=== PATIENT | male | born 1930 | race African-American/Black ===

== ENCOUNTER 2018-11-21 13:44 | Inpatient (IN) ==
[2018-11-21 14:53] LABS: BASO# 0.01 X1000 (0.0-0.2); BASO% 0.1 % (0.0-0.8); EOS# 0.05 X1000 (0.0-0.7); EOS% 0.6 % (0.0-10.0); HEMATOCRIT 31.4 % (42.0-52.0); HEMOGLOBIN 10.3 g/dL (14.0-18.0); IMM GRAN# 0.02 X1000 (0.0-0.04); IMM GRAN% 0.2 % (0.0-0.5); LYMPH% 18.1 % (20.5-51.1); MCH 28.8 PG (27-31); MCHC 32.8 g/dL (33-37); MCV 87.7 FL (81-99); MONO# 0.75 X1000 (0.11-0.59); MPV 9.6 FL (7.4-10.4); NEUT# 5.98 X1000 (1.4-6.5); PLT 238 X1000 (130-400); RBC 3.58 XMIL (4.7-6.1); WBC 8.31 X1000 (4.8-10.8)
[2018-11-21 15:19] LABS: AGAP 14; ALBUMIN 3.5 g/dL (3.5-5.0); ALKALINE PHOSPHATASE 64 U/L (32-122); AMYLASE 53 U/L (20-200); BUN 12 mg/dL (8-22); CALCIUM 8.7 mg/dL (8.8-10.2); CHLORIDE 91 mmol/L (98-107); COSMO 259; CREATININE 1.1 mg/dL (0.7-1.2); ESTIMATED GFR > 60; GLUCOSE 106 mg/dL (70-104); GOT 16 U/L (10-34); GPT 7 U/L (10-44); LIPASE 22 U/L (13-60); POTASSIUM 3.6 mmol/L (3.5-5.1); SODIUM 129 mmol/L (136-145); TCO2 24 mmol/L (25-35); TOTAL PROTEIN 6.7 g/dL (6.3-8.3)
--- NOTE | 2018-11-21 18:11 | Diag Imaging Result Doc PS360 ---
EXAM: CT ABD/PELVIS W/IV CONT ONLY 11/21/2018 HISTORY: abdominal pain TECHNIQUE: This exam was performed using automated exposure control, adjustment of mA or kV according to patient size, and/or use of iterative reconstruction technique. COMMENT: There are interstitial opacities in both lung bases which were also present at the time the previous study and may be related to fibrotic lung disease. There is a lobulated mass over the left hemidiaphragm which was not present at the time the previous examination of 08/08/2011. There is irregular enhancement of the mass which appears to pass through the hemidiaphragm. This measures 5.3 cm in greatest dimension. The spleen is not enlarged. The adrenal glands are within normal limits. There are numerous subcentimeter calcified gallstones. There is no evidence of cholecystitis. The liver is unremarkable. The kidneys are without evidence of hydronephrosis or mass. There is a small cortical cyst in the lower pole of the left kidney. There is no evidence of bowel obstruction or appendicitis. There is diverticulosis particularly in the distal descending and sigmoid colon. There is no evidence of abdominal aortic aneurysm. The pancreas is unremarkable. Pelvis: There is a diverticulum on the left side of the urinary bladder. The appendix is normal in appearance. There is no evidence of free fluid or mass. There is osteopenia throughout most of the regional skeleton. 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 There are punctate areas of sclerosis distributed throughout the pelvis including the sacrum. These findings were also present on the previous study. IMPRESSION: Left basilar/diaphragmatic mass. Otherwise stable since 08/08/2011. Cholelithiasis. Electronically signed by Jasmeet Phan 11/21/2018 6:08 PM
[2018-11-21] MEDS ORDERED: MORPHINE IV ONE (19:18)
[2018-11-21] MEDS ORDERED: ZOFRAN IV ONE (19:18)
[2018-11-21 20:36] LABS: BILIRUBIN URINE NEGATIVE (NEGATIVE); BLOOD URINE NEGATIVE (NEGATIVE); CLARITY CLEAR (CLEAR); COLOR YELLOW; GLUCOSE URINE NEGATIVE (NEGATIVE); KETONE URINE NEGATIVE (NEGATIVE); LEUKOCYTES URINE NEGATIVE (NEGATIVE); NITRITE URINE NEGATIVE (NEGATIVE); PH URINE 6.5; PROTEIN URINE 2+(100 mg/dL) mg/dL (NEGATIVE); UROBILINOGEN URINE 8 mg/dL
[2018-11-21 20:44] LABS: URINE BACTERIA 1+ /HFP; URINE CAST NONE SEEN /LPF; URINE CRYSTAL NONE SEEN /HPF; URINE EPITHELIAL CELLS <10 /HPF (<10); URINE SOURCE CATH; URINE YEAST NONE SEEN /HPF
[2018-11-21] MEDS ORDERED: TYLENOL PO PRN (21:19)
[2018-11-21] MEDS ORDERED: MORPHINE IV PRN ×2 (21:19→23:41)
--- NOTE | 2018-11-21 21:25 | PROVIDER DOCUMENTATION ---
This chart was entered by Suzan Sr Scribe, acting as scribe for Tony Tidwell MD. HPI-Abdominal Pain/GI Problem - General Chief Complaint: Abdominal Pain Stated Complaint: PAIN IN STOMACH / CAN'T EAT Time Seen by Provider: 11/21/18 16:53 Source: patient, family Allergies/Adverse Reactions: Patient Allergies Allergy/AdvReac Type Severity Reaction Status Date / Time No Known Allergies Allergy Verified 11/21/18 14:18 Home Medications: Home Medication List Medication Instructions Recorded Confirmed Last Taken Type Aspirin 81 mg PO DAILY 11/21/18 11/21/18 Unknown History Bicalutamide [Casodex] 50 mg PO DAILY 11/21/18 11/21/18 Unknown History Cholecalciferol (Vitamin D3) 1,000 unit PO DAILY 11/21/18 11/21/18 Unknown History [Vitamin D3] Dexamethasone 1.5 mg PO DIRECTED 11/21/18 11/21/18 Unknown History Furosemide [Lasix] 20 mg PO DAILY 11/21/18 11/21/18 Unknown History Iron Carbonyl/Vit C/Vit B12/FA 1 each PO DAILY 11/21/18 11/21/18 Unknown History [Icar-C Plus] Pantoprazole [Protonix] 40 mg PO DAILY@0700 11/21/18 11/21/18 Unknown History Potassium Chloride 10 meq PO DAILY 11/21/18 11/21/18 Unknown History SIMVAstatin [Zocor] 40 mg PO QHS 11/21/18 11/21/18 Unknown History Tamsulosin [Flomax] 0.4 mg PO DAILY 11/21/18 11/21/18 Unknown History Tramadol/APAP [Ultracet 1 each PO BID 11/21/18 11/21/18 Unknown History 37.5MG/325Mg] - History of Present Illness-ABD Nature of Presenting Problems: 88 yobm presents to the ed with family with c/o abdominal pain, decreased appetite for 1 week. Abdominal Pain Onset Location: reports: epigastric Pain Radiation: reports: no radiation Quality of Pain: reports: aching Severity in ED: reports: moderate Onset/Duration: reports: 1 week ago Timing: reports: still present, intermittent Activities at Onset: reports: light activity Modifying Factors: improves with: nothing. worse with: eating Associated Symptoms: reports: loss of appetite. 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 denies: diarrhea, nausea, vomiting Genitourinary: reports: no symptoms reported Musculoskeletal: reports: no symptoms reported Integumentary: reports: no symptoms reported Neurological: denies: dizziness/vertigo, headache/migraines Psychiatric: reports: no symptoms reported Endocrine: reports: no symptoms reported Hematologic/Lymphatic: reports: no symptoms reported Allergic/Immunologic: reports: no symptoms reported All Other Systems: Reviewed and Negative Past History - Adult - PAST MEDICAL HISTORY-ADULT Review of Records: reports: Old Records Reviewed, Nursing Assessment Review, Medications Reviewed, Social history reviewed & non-contributory. Major Childhood Illnesses: reports: denies history Cardiovascular: reports: HTN Respiratory: reports: denies history Gastrointestinal: reports: denies history Genitourinary: reports: prostate cancer Musculoskeletal: reports: chronic pain, neck/back injury Neurological: reports: CVA, stroke deficits, speech difficulty Psychiatric: reports: denies history Endocrine/Immune: reports: denies history Other Conditions: reports: denies history - PRIOR SURGERIES/PROCEDURES Surgical/Procedure History: reports: other (TURP) - IMMUNIZATION STATUS Childhood Immunizations: See Nurse Assessment Flu Vaccine: See Nurse Assessment - FAMILY HISTORY Family History: reviewed, not pertinent - SOCIAL HISTORY Smoking: quit greater than 1 year Substance Use: denies Alcohol Use Frequency: never Living Situation: alone Physical Exam-General - PHYSICAL EXAM-ADULT Initial Vital Signs Reviewed: Yes - CONSTITUTIONAL General Appearance: alert, no apparent distress - EYES Eyes: PERRL/EOMI, pink conjunctivae - HEAD, EARS, NOSE, MOUTH & THROAT HENMT: moist mucous membranes, other (no teeth) - NECK Neck: full range of motion, normal inspection - CARDIOVASCULAR Cardiovascular: normal peripheral pulses, regular rate, rhythm, systolic murmur - GASTROINTESTINAL (ABDOMEN) Abdominal Exam: normal bowel sounds, soft, tenderness (epigastric). negative: distended, guarding, rigid, rebound - LYMPHATIC Lymphatic: no adenopathy - MUSCULOSKELETAL Back Exam: normal inspection, no CVA tenderness, no vertebral tenderness Extremity: normal inspection, no calf tenderness, normal capillary refill. negative: normal gait (but is at baseline per family) - SKIN Integumentary: normal color, normal turgor, warm/dry - NEUROLOGIC Neurologic: grossly normal (at baseline but does have issues from past CVA), abnormal gait (but baseline), facial droop (rt side old from cva), motor weakness (baseline from old stroke right side) - PSYCHIATRIC Psych/Mental Status: normal mood/affect, normal thought content, normal thought process, oriented x 3 Progress - PLAN OF CARE/RESULTS Progress/Plan/Lab Results: Vital Signs - 8 hr 11/21/18 14:11 11/21/18 15:52 Temperature 98.2 F 98 F Pulse Rate 74 76 Respiratory Rate 16 20 Blood Pressure 155/83 136/71 O2 Sat by Pulse Oximetry 99 99 Laboratory Results - last 24 hr 11/21/18 11/21/18 14:08 14:36 WBC 8.31 RBC 3.58 L Hgb 10.3 L Hct 31.4 L MCV 87.7 MCH 28.8 MCHC 32.8 L RDW Std Deviation 15.0 H Plt Count 238 MPV 9.6 Immature Gran % (Auto) 0.2 Neut % (Auto) 72.0 Lymph % (Auto) 18.1 L Faulkner % (Auto) 9.0 Eos % (Auto) 0.6 Baso % (Auto) 0.1 Immature Gran # (Auto) 0.02 Neut # (Auto) 5.98 Lymph # (Auto) 1.50 Faulkner # (Auto) 0.75 H Eos # (Auto) 0.05 Baso # (Auto) 0.01 Sodium 129 L Potassium 3.6 Chloride 91 L Carbon Dioxide 24 L Anion Gap 14 BUN 12 Creatinine 1.1 Estimated GFR/1.73 m2 > 60 BUN/Creatinine Ratio 11 Glucose 106 H Calculated Osmolality 259 Calcium 8.7 L Total Bilirubin 0.90 AST 16 ALT 7 L Alkaline Phosphatase 64 Total Protein 6.7 Albumin 3.5 Globulin 3.0 Albumin/Globulin Ratio 1.0 Amylase 53 Lipase 22 Orders Category Date Time Status Saline Loc DIRECTED Care 11/21/18 14:19 Active NPO Diet 11/21/18 14:19 Active AMYLASE [CHEM] Stat Lab 11/21/18 14:08 Completed CBC WITH ELECTRONIC DIFF [HEME] Stat Lab 11/21/18 14:36 Completed COMPREHENSIVE METABOLIC PANEL [CHEM] Stat Lab 11/21/18 14:08 Completed LIPASE [CHEM] Stat Lab 11/21/18 14:[address] W/POSS RFLX CULT [URINALYSIS] Stat Lab 11/21/18 14:19 Uncollected Result Diagrams: 11/21/18 14:36 11/21/18 14:08 - REASSESSMENT Reassessment #1 Time Reassessed: 20:10 Status: other (patient will have to stay in the ED as per charge nurse for space to be available in [facility] to allow for transfer) - CT/MRI 1 CT Study: Abdomen Impression: Abnormal ( EXAM: CT ABD/PELVIS W/IV CONT ONLY 11/21/2018 HISTORY: abdominal pain TECHNIQUE: This exam was performed using automated exposure control, adjustment of mA or kV according to patient size, and/or use of iterative reconstruction technique. COMMENT: There are interstitial opacities in both lung bases which were also present at the time the previous study and may be related to fibrotic lung disease. There is a lobulated mass over the left hemidiaphragm which was not present at the time the previous examination of 08/08/2011. There is irregular enhancement of the mass which appears to pass through the hemidiaphragm. This measures 5.3 cm in greatest dimension. The spleen is not enlarged. The adrenal glands are within normal limits. There are numerous subcentimeter calcified gallstones. There is no evidence of cholecystitis. The liver is unremarkable. The kidneys are without evidence of hydronephrosis or mass. There is a small cortical cyst in the lower pole of the left kidney. There is no evidence of bowel obstruction or appendicitis. There is diverticulosis particularly in the distal descending and sigmoid colon. There is no evidence of abdominal aortic aneurysm. The pancreas is unremarkable. Pelvis: There is a diverticulum on the left side of the urinary bladder. The appendix is normal in appearance. There is no evidence of free fluid or mass. There is osteopenia throughout most of the regional skeleton. 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 There are punctate areas of sclerosis distributed throughout the pelvis including the sacrum. These findings were also present on the previous study. IMPRESSION: Left basilar/diaphragmatic mass. Otherwise stable since 08/08/2011. Cholelithiasis. Electronically signed by Jasmeet Phan 11/21/2018 6:08 PM 11/21/181807 Interpreting Physician: Jasmeet Phan MD Dictated Date/Time: 11/21/181800) - CONSULTS/PCP/HOSPITALIST Notification #1 *Consult/PCP/Hospitalist*: Dr. Mkceon Time Discussed: 19:55 Consult Disposition: other (consult surgeon) #2 Consult: Dr. Dubose Time Discussed: 20:00 Consult Disposition: Admit (admit to [facility]) #3 Consult: Dr. Velasquez Time Discussed: 20:05 Consult Disposition: Admit (Transfer patient for admission at [facility]) Departure - Departure Date of Disposition Decision: 11/21/18 Time of Disposition Decision: 21:25 DIAGNOSIS: Diaphragmatic disorder, Mass, Hyponatremia Disposition: ADMITTED INPATIENT 09 Certified Medical Emergency: Emergent Condition: Serious - Critical Care Note This patient required my direct & personal management of CC.: No Attestation - Physician/ NORMAN Attestation The physician spent face to face time with patient:: Yes Advanced Practice Provider documentation review:: Supervising physician onsite and consulted in the evaluation and care of this patient. The physician did have a face to face encounter with the patient. This chart was documented by the indicated scribe, (Suzan Sr Scribe) and accurately reflects the services I performed and decisions made by me, Tony Tidwell MD, as attested by the provider's signature.
[2018-11-21] MEDS ORDERED: ZOFRAN IV PRN (23:38)
--- NOTE | 2018-11-22 02:21 | HISTORY AND PHYSICAL ---
PRIMARY CARE PHYSICIAN: Unknown. CHIEF COMPLAINT: Abdominal pain. HISTORY OF PRESENTING ILLNESS: An 88-year-old elderly male with a history of hypertension, CVA, prostate cancer, who initially presented to [facility] complaining of abdominal pain. The patient was evaluated there. He had abdominal CT done which did show a left basilar/diaphragmatic mass. Case was discussed with General Surgery, who recommended the patient be transferred to [facility] for further evaluation and management. The patient is a poor historian. He somewhat has garbled speech secondary to a previous stroke and not much history could be obtained from him and most of the history is obtained from previous ER charting and other records. PAST MEDICAL HISTORY: Hypertension, prostate cancer, CVA. PAST SURGICAL HISTORY: TURP. ALLERGIES: No known drug allergies. CURRENT MEDICATIONS: Flomax 0.4 mg p.o. daily, simvastatin 40 mg p.o. at bedtime KCl 10 mg p.o. daily, pantoprazole 40 mg p.o. daily, Lasix 20 mg p.o. daily, Casodex 50 mg p.o. daily, aspirin 81 mg daily. SOCIAL HISTORY: He is a former smoker. No history of alcohol or illicit drug use. FAMILY HISTORY: No history of coronary artery disease. REVIEW OF SYSTEMS: Limited due to patient's speech being somewhat garbled. PHYSICAL EXAMINATION: GENERAL: The patient is resting comfortably. VITAL SIGNS: Temperature 97.4 degrees, pulse 92, respirations 24, blood pressure 153/68. HEENT: Atraumatic, normocephalic. NECK: No masses. CHEST: Clear to auscultation. CARDIOVASCULAR: Regular rate and rhythm. ABDOMEN: Soft. Some diffuse tenderness. EXTREMITIES: No edema. NEUROLOGIC: He is awake, alert, oriented x1. GENITOURINARY: No bladder distention. SKIN: Warm. LABORATORIES AND STUDIES: WBCs. 8.31, hemoglobin 10.3, hematocrit 31.4, platelets 238,000. Sodium 129, potassium 3.6, chloride 91, CO2 is 24, BUN is 12, creatinine is 1.1 , CT of the abdomen and pelvis shows left basilar/diaphragmatic mass. ASSESSMENT: This is an 88-year-old elderly male with a history of hypertension , prostate cancer, and cerebrovascular accident, who had initially presented to [facility] with complaint of abdominal pain. The patient apparently had a CT scan done which did show a diaphragmatic mass. Case was discussed with General Surgery, who recommended the patient be transferred to [facility] for further evaluation and management. 1. Abdominal pain. 2. Abnormal CT showing diaphragmatic mass. 3. Cerebrovascular accident 4. Hypertension. 5. Prostate cancer. PLAN: 1. We will admit patient to medical floor with telemetry. 2. Keep patient NPO. 3. Consult General Surgery. 4. We will give patient adequate pain control and antiemetics as needed. 5. We will hold home medicines for now. 6. We will put patient on DVT prophylaxis with SCDs. 7. We will continue to follow, and reassess and make further recommendation based on patient's clinical course. cc: Isai Velasquez MD MTDD
[2018-11-22 06:31] LABS: BASO# 0.01 X1000 (0.0-0.2); BASO% 0.1 % (0.0-0.8); EOS# 0.05 X1000 (0.0-0.7); EOS% 0.6 % (0.0-10.0); HEMATOCRIT 34.4 % (42.0-52.0); HEMOGLOBIN 11.1 g/dL (14.0-18.0); LYMPH# 1.01 X1000 (1.2-3.4); LYMPH% 11.9 % (20.5-51.1); MCH 28.8 PG (27-31); MCHC 32.3 g/dL (33-37); MCV 89.4 FL (81-99); MONO# 0.76 X1000 (0.11-0.59); MPV 9.9 FL (7.4-10.4); NEUT# 6.65 X1000 (1.4-6.5); NEUT% 78.4 % (42.2-75.2); PLT 240 X1000 (130-400); RBC 3.85 XMIL (4.7-6.1); RDW 15.2 % (11.5-14.5); WBC 8.48 X1000 (4.8-10.8)
[2018-11-22 06:50] LABS: AGAP 13; BUN 14 mg/dL (8-22); CALCIUM 8.9 mg/dL (8.8-10.2); CHLORIDE 93 mmol/L (98-107); COSMO 261; ESTIMATED GFR > 60; GLUCOSE 96 mg/dL (70-104); POTASSIUM 3.5 mmol/L (3.5-5.1); SODIUM 130 mmol/L (136-145); TCO2 24 mmol/L (25-35)
--- NOTE | 2018-11-22 07:30 | GENERAL SURGERY CONSULTATION ---
DATE: 11/21/2018 HISTORY OF PRESENT ILLNESS: This is an 88-year-old gentleman who presented at the urgency of his family to the [place] ER with apparent upper abdominal discomfort. He has had no vomiting per the history that I have been able to obtain, although it is limited, as he does not seem completely oriented to his situation. A CT scan was obtained that showed numerous gallstones within the gallbladder, but it also showed a large left hilar mass extending to the diaphragm. His labs are overall unremarkable, but he does have some hyponatremia. He is hemodynamically stable, in no respiratory or acute distress. Medical history and surgical history is otherwise unobtainable, as well social history, given his current mental status. PHYSICAL EXAMINATION: General: He is alert. He does not appear to be in any acute distress. He is not really oriented. Cardiovascular: Normal rate. Pulmonary: No increased work of breathing. I see no thoracic scars. Abdomen: Soft. Integument: Warm. I do not palpate any crepitance to his chest. Otherwise warm, dry, without jaundice. Lymphatic: I do not feel any cervical, axillary, or inguinal adenopathy. Neurologic: He seems to be moving all extremities, but he is not oriented, but he is somewhat conversant. Musculoskeletal: He does have muscle atrophy throughout. ASSESSMENT AND PLAN: This is an elderly gentleman with a left, most likely pleural-based mass, multiple potential etiologies. He also has gallstones. His exam is benign. He does appear somewhat dehydrated, and possibly even malnourished. I have recommended admission for further workup to the hospitalist service. We will follow along surgically, but I do not see any acute surgical intervention, and overall in this elderly debilitated gentleman, I doubt aggressive measures will be indicated. cc: Kenrick Dubose MD
--- NOTE | 2018-11-22 11:12 | PROGRESS NOTE ---
DATE: 11/22/2018 SUBJECTIVE: He was admitted yesterday with abdominal pain, followed by Dr. Zaire Gallo. This is an 88-year-old with history of hypertension, CVA and prostate cancer. Presented to [facility] complaining of abdominal pain. Patient was evaluated there. CT of the abdomen showed left basilar diaphragmatic mass and was discussed with General surgery, who recommended the patient be transferred to [facility] [place]. I think they are trying to think about doing a biopsy. Patient is a poor historian. His niece is there and she helps. He has garbled speech and has had a previous stroke. Apparently he has been eating okay. PAST MEDICAL HISTORY: Hypertension, prostate cancer, CVA. CURRENT MEDICATIONS: Flomax 0.4 mg a day. Simvastatin 40 mg a day. Protonix 40 mg a day. Lasix 20 mg a day, Casodex 50 mg daily and aspirin 81 mg a day. EXAM: General: He is awake, alert, pleasant. Vital Signs: Temperature 98.8, pulse 73, respirations 20, blood pressure 145/71. Eyes: Pupils are equal and round. Lungs: Clear in all lung weiner. Cardiovascular: Regular rhythm and rate without murmur or S3. Abdomen: Soft. Skin: Warm and dry. DIAGNOSTICS: White count from yesterday 8480, hematocrit 34, platelet count 240,000. Sodium 130, potassium 3.5, chloride 93, BUN 14, creatinine 1.0. Urinalysis unremarkable. CT of the abdomen and pelvis, left basilar diaphragmatic mass. Otherwise stable from 08/08/2011. Cholelithiasis appreciated. ASSESSMENT AND PLAN: 1. Abdominal pain, left diaphragmatic mass basilar. I think the plan is to pursue a needle biopsy per General surgery. We will let him have liquids today and Dr. Dubose wants him to have soft diet tomorrow. 2. Status post cerebrovascular accident. He has some expressive aphasia. 3. Hypertension. 4. History of prostate cancer. Looking at his orders, I do not see any change. 5. Looking at his home medications, we will hold his aspirin, actually holding everything, Protonix and the iron, simvastatin. I think he can have his tamsulosin and Flomax. cc: Bimal Lo MD
[2018-11-22] MEDS: ULTRACET 37.5MG/325MG PO SCH ×2 (15:15→20:49)
[2018-11-22] MEDS: ZOCOR PO SCH (20:49)
--- NOTE | 2018-11-23 01:58 | GENERAL SURGERY PROGRESS NOTE ---
DATE: 11/22/2018 SUBJECTIVE: He feels much better. No further pain or nausea overnight. He is much more alert with his hydration. No fevers. No tachycardia. PHYSICAL EXAMINATION: General: He is alert and more conversant. Cardiovascular: Normal rate. Pulmonary: No increased work of breathing and with equal chest rise. Abdomen: Soft. Integument: Warm, dry. LABORATORY DATA: I reviewed his labs. White count is 8 hematocrit is 34. Sodium is up to 130, creatinine is 1.0. ASSESSMENT AND PLAN: An 88-year-old gentleman. On further questioning with his who is here with him, he does have a history of prostate cancer and he had a prostatectomy for this 10 years ago. His main issue was upper abdominal discomfort apparently. His CT scan showed an incidental left hemithorax mass of unclear etiology. I would recommend continued hydration. I think he is going to warrant a percutaneous biopsy of this or possibly a transbronchial biopsy. We will discuss with the radiologist after the weekend. Otherwise, we will continue hydration, nutritional supplementation. He is a very frail, elderly gentleman. I doubt he will be a candidate for any further aggressive measures, but we will monitor. He may benefit from systemic therapy. cc: Kenrick Dubose MD
[2018-11-23] MEDS: PROTONIX PO SCH ×2 (05:57→07:44)
--- NOTE | 2018-11-23 09:53 | PROGRESS NOTE ---
DATE: 11/23/2018 SUBJECTIVE: Mr. Neville feels much better than yesterday. No abdominal pain. He is breathing comfortably. Remains afebrile. OBJECTIVE: Vital Signs: Temperature 97.7 degrees, pulse 66, respirations 16, blood pressure 166/68. HEENT: Pupils are equal. No distended neck veins. Lungs: Clear anterior and posterior in all lung weiner. Cardiovascular Examination: Regular rhythm and rate without murmur or S3. Abdomen: Soft. Skin: Warm and dry. Is and Os: Urine output was 700 mL. ASSESSMENT AND PLAN: Dr. Dubose has evaluated. 1. An 88-year-old gentleman who has a history of prostate cancer. Had a prostatectomy 10 years ago. His main issue is upper abdominal discomfort. A CT scan showed incidental left hemithorax mass of unclear etiology so we are going to continue hydration. This may need a percutaneous biopsy or possibly a transbronchial biopsy. Dr. Dubose is going to discuss with the radiologist. Meanwhile, clinically he feels better. 2. Status post cerebrovascular accident with expressive aphasia but he is able to communicate pretty well. 3. Hypertension. 4. History of prostate cancer, status post prostatectomy. 5. Review of his lab from yesterday, hematocrit 38, hemoglobin 11, stable. Electrolytes look good. Creatinine is 1.0. 6. Review his orders. I do not see any changes. He is on simvastatin 40 mg at bedtime, Protonix 40 mg a day, Flomax 0.4 mg a day, and tramadol 1 twice a day. cc: Bimal Lo MD
[2018-11-23] MEDS: FLOMAX PO SCH (10:01)
[2018-11-23] MEDS: ICAR-C PLUS PO SCH (10:01)
[2018-11-23] MEDS: ULTRACET 37.5MG/325MG PO SCH ×2 (10:01→22:01)
--- NOTE | 2018-11-23 14:56 | GENERAL SURGERY PROGRESS NOTE ---
DATE: 11/23/2018 SUBJECTIVE: No events overnight. He is resting comfortably this morning. Hemodynamically been stable with no fevers. General. He is resting comfortably, no acute distress. Cardiovascular normal rate. No new labs this morning. ASSESSMENT AND PLAN: An 88-year-old gentleman vague upper abdominal discomfort and left pleural- based mass. Will discuss with Radiology tomorrow percutaneous biopsy otherwise will continue medical management. cc: Kenrick Dubose MD
[2018-11-23] MEDS: ZOCOR PO SCH (22:00)
[2018-11-24] MEDS: PROTONIX PO SCH (06:25)
--- NOTE | 2018-11-24 10:57 | PROGRESS NOTE ---
DATE: 11/24/2018 SUBJECTIVE: Mr. Neville is feeling much better. No pain. He does have a little bit of nausea he reports. OBJECTIVE: Vital signs: Temp 97.6 degrees, pulse 88, respirations 22, blood pressure 157/66. HEENT: Pupils are equal and round. Lungs: Clear in all lung weiner. Cardiovascular: Regular rhythm and rate without murmur or S3. Abdomen: Soft. Skin: Warm and dry. Urine output is 600 mL. ASSESSMENT AND PLAN: 1. Vague upper abdominal discomfort, left pleural base mass. Discussing with Radiology about percutaneous biopsy. Clinically he is better. He is not hurting as bad. 2. Status post cerebral accident with expressive aphasia. Not able to communicate well. 3. Hypertension. 4. History of prostate cancer. 5. Hemoglobin and hematocrit remain stable. Hematocrit 34, hemoglobin 11. 6. Serum creatinine looks good. 7. Review of orders. I do not see any change at this point. 8. Benign prostatic hypertrophy. He is on Flomax. cc: Bimal Lo MD
[2018-11-24] MEDS: ICAR-C PLUS PO SCH (11:58)
[2018-11-24] MEDS: ULTRACET 37.5MG/325MG PO SCH ×2 (11:58→22:45)
[2018-11-24] MEDS: FLOMAX PO SCH (11:59)
--- NOTE | 2018-11-24 14:13 | GENERAL SURGERY PROGRESS NOTE ---
DATE: 11/24/2018 SUBJECTIVE: He is eating some soft food. He is tolerating it with no pain. No fevers. No tachycardia. OBJECTIVE: Vital signs: Blood pressure 137/65, oxygen saturation 92%. General: He is alert. Abdomen: Soft. Cardiovascular: Normal rate. ASSESSMENT AND PLAN: I talked with Dr. Green. He does not seem to have a percutaneous wound to biopsy this area. I talked to Dr. Hernandez. It does seem that this is possibly originating from the fundus of the stomach and extending in an exophytic fashion cephalad, although it could be a diaphragmatic or pleural-based. I will ask Dr. Hernandez to perform an EGD to evaluate further. We will follow along. I discussed with family. cc: Kenrick Dubose MD
--- NOTE | 2018-11-24 14:44 | GASTROENTEROLOGY CONSULTATION ---
DATE: 11/24/2018 PRIMARY CARE DOCTOR: Zaire Gallo MD REASON FOR CONSULTATION: Question of stomach mass. HISTORY OF PRESENT ILLNESS: Mr. Neville is an 88-year-old male who was admitted on 11/21/2018 for abdominal pain in the epigastric region for the last couple of weeks. He had imaging done, which showed evidence of left basilar/diaphragmatic mass. General Surgery was consulted. They have spoken to the Radiology team and the question was raised for possible gastric mass. Gastroenterology was consulted for EGD with possible biopsy. I spoke to the patient and the family at bedside. The patient has been having intermittent abdominal pain for a few weeks. This has gotten worse. He denies any nausea or vomiting. He is moving his bowels. Denies any vomiting blood or passing blood in the stools. He denies having any EGD done in the recent past. PAST MEDICAL HISTORY: CVA, prostrate cancer, hypertension. PAST SURGICAL HISTORY: TURP. ALLERGIES: No known drug allergies. MEDICATIONS: Medications in the hospital include Zocor, Tylenol, Iron C once daily, morphine, Zofran, Protonix, Flomax, Ultram, full liquid diet and Ensure Clear. SOCIAL HISTORY: He is a former smoker. No history of alcohol or illicit drug abuse. The patient has niece and family at bedside. FAMILY HISTORY: No history of stomach cancer in the family. REVIEW OF SYSTEMS: Limited. 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 He does complain of abdominal pain, but denies any nausea, vomiting, vomiting blood, or passing blood in the stools. He does have history of some baseline arthritis. PHYSICAL EXAMINATION: Vital Signs: Temperature 97.6 degrees, pulse 85, respiratory rate 18, blood pressure 137/65, saturating 92% on room air. Body weight 127 pounds, BMI 19.9 kg/m2. General: Thinly built, lying in bed, in no acute distress. HEENT: Mild pallor. No icterus. Pupils equal and reactive to light. Neck: Supple. Abdomen: Discomfort in the epigastrium. No rebound. No guarding. Extremities: No cyanosis or clubbing. Neurologic: He is awake, alert, and answers some questions. LABORATORY DATA: Hemoglobin and hematocrit 11.1 and 34.4, white count 8.4, platelet count 240,000. Sodium 130, potassium 3.5, chloride 93, bicarb 24, anion gap 13, BUN 14, creatinine 1, glucose 96, calcium 8.9, AST 16, ALT 7, alkaline phosphatase 64, total protein 6.7, albumin 3.5, amylase 53, lipase 22. Urinalysis showing 2+ protein. DIAGNOSTIC STUDIES: CT of the abdomen and pelvis done on 11/21/2018 showed left basilar/diaphragmatic mass. Abnormal-appearing area at the left diaphragm may simply be collapsed gastric mucosa. Consider further evaluation with upper endoscopy. Diverticulosis in the descending colon and sigmoid colon. IMPRESSION: 1. Abnormal CT scan, question of diaphragmatic mass or exophytic mass from the stomach. May be exophytic chest versus lipoma are some of the possibilities. 2. Mild anemia. 3. Epigastric pain. 4. Diverticulosis in the colon. RECOMMENDATIONS: Will start the patient on full liquid diet. Will keep him on PPIs once daily. We will keep him on iron supplementation for anemia. Will schedule for EGD tomorrow under anesthesia. The risks, benefits, indications, and alternatives to the procedure were discussed with the patient and family, and all questions answered. I also spoke with Dr. Cale Dubose. Further recommendations pending hospital course. cc: MD Kenrick Shoemaker MD Wayne E. Thomas, MD
[2018-11-24] MEDS: ZOCOR PO SCH (22:45)
[2018-11-25] MEDS: PROTONIX PO SCH (06:49)
[2018-11-25] MEDS: ULTRACET 37.5MG/325MG PO SCH ×2 (09:59→22:47)
[2018-11-25] MEDS: ICAR-C PLUS PO SCH (10:00)
[2018-11-25] MEDS: FLOMAX PO SCH (10:00)
[2018-11-25] MEDS ORDERED: AMIDATE ONE (10:25)
[2018-11-25] MEDS ORDERED: SODIUM CHLORIDE 0.9% 10 ML ONE (10:28)
--- NOTE | 2018-11-25 11:25 | OPERATIVE NOTE ---
PROCEDURE DATE : 11/25/2018 PROCEDURE: Upper gastrointestinal endoscopy. PROVIDER: Jefe Godoy MD. INDICATIONS: Left basilar diaphragmatic mass found on CT, rule out GI origin. MEDICATIONS: Monitored Anesthesia Care DESCRIPTION OF PROCEDURE: Prior to the procedure, a history and physical was performed, and patient's medications and allergies were reviewed. The patient's tolerance to previous anesthesia was also reviewed. The risks and benefits of the procedure and the sedation options and risks were discussed with the patient. All questions were answered and appropriate consent was obtained. After reviewing the risks and benefits, the patient was deemed to be in satisfactory condition to undergo the procedure. After the informed consent was obtained, the endoscope was passed under direct visualization. Throughout the procedure, the patient's blood pressure, pulse, and oxygen saturations were monitored continuously. The endoscope was introduced through the mouth and advanced to the second part of the duodenum. The upper GI endoscopy was accomplished without difficulty. The patient tolerated the procedure well. MEDICATION: Monitored anesthesia care. COMPLICATIONS: No immediate complications. ESTIMATED BLOOD LOSS: None. FINDINGS: Normal endoscopy. Retroflexion in the stomach revealed normal GE junction and fundus. No evidence of external compression or gastric mass. IMPRESSION: Normal GI endoscopy. RECOMMENDATIONS: - Resume diet - Recommend percutaneous biopsy of probable diaphragmatic basilar mass - If there is continued concern for GI origin, EUS with FNA would be a possibility - At this point, GI will sign off. Please call with any questions or concerns. MTDD
--- NOTE | 2018-11-25 11:54 | PROGRESS NOTE ---
DATE: 11/25/2018 SUBJECTIVE: This morning, Mr. Neville refers to be doing fairly okay. Denies any acute complaints. He denies any abdominal pain. OBJECTIVE: Vital signs: Blood pressure is 142/52, pulse is 62, respirations 16, temperature is 97.5. General: Mr. Neville is an 88-year-old gentleman. He was in bed in no distress. Mucosa: Maribel and moist. Anicteric, acyanotic. Neck: Supple. Chest: Good air entry bilateral. There was no crepitations, no rhonchi. Cardiovascular: Regular rate and rhythm. Questionable murmur radiating to the neck of about a 2/6 intensity. Abdomen: Soft, nontender. Bowel sounds present. Extremities: No pedal edema. INTENSIVE CARE AMBULANCE PARAMEDIC: Patient is awake, alert, oriented to person but disoriented to place and time. The patient does have some dysarthric speech, but he seems to understand and follows basic commands and occasionally, his speech will become clear. LABORATORY DATA: No CBC and no chemistry for today. A CT scan of the abdomen, which was done on admission, did show a left basilar diaphragmatic mass and cholelithiasis. ASSESSMENT: 1. Left basilar versus diaphragmatic mass. Patient is pending esophagogastroduodenoscopy. Today has been evaluated by both Gastroenterology and Surgery. 2. Cholelithiasis noted. 3. History of cerebrovascular accident. 4. History of prostate cancer. 5. Generalized weakness. 6. Hyponatremia on presentation unsure if this is related to the lung mass. There has not been any chemistries since the 2nd, so we will repeat and follow it accordingly. cc: Juve Mari MD
--- NOTE | 2018-11-25 18:58 | GENERAL SURGERY PROGRESS NOTE ---
DATE: 11/25/2018 SUBJECTIVE: He is doing well. He is tolerating a diet. No pain. No fevers. No tachycardia. OBJECTIVE: General: He is alert. Abdomen: Soft. Cardiovascular: Normal rate. Pulmonary: No increased work of breathing. LABORATORY: No new labs this morning. He had an EGD yesterday that showed no mucosal lesions in the esophagus or stomach. ASSESSMENT AND PLAN: An 88-year-old gentleman with a mass of unclear etiology. Most likely this is pleural-based or diaphragmatic based. It could be exophytic from the stomach, but doubtful. I had a discussion with the family about goals and ultimately hopes for his treatment. I do not think that this lesion is causing any extrinsic compression in the stomach and is most likely not causing his abdominal discomfort or nausea. I also do not think he would be a candidate for systemic chemotherapy or surgery, especially a thoracic operation, given his age and frail condition. Next step in diagnosis will be [*] transbronchoscopic biopsy potentially, but I have left this up to the family. We will follow along. Otherwise, continue diet as tolerated. cc: Kenrick Dubose MD
[2018-11-25] MEDS: ZOCOR PO SCH (22:47)
[2018-11-26] MEDS: PROTONIX PO SCH (06:32)
[2018-11-26 06:40] LABS: BASO# 0.01 X1000 (0.0-0.2); BASO% 0.2 % (0.0-0.8); EOS# 0.11 X1000 (0.0-0.7); HEMATOCRIT 29.9 % (42.0-52.0); HEMOGLOBIN 9.3 g/dL (14.0-18.0); LYMPH# 1.17 X1000 (1.2-3.4); LYMPH% 21.5 % (20.5-51.1); MCH 28.5 PG (27-31); MCHC 31.1 g/dL (33-37); MCV 91.7 FL (81-99); MONO# 0.51 X1000 (0.11-0.59); MONO% 9.4 % (1.7-9.3); NEUT# 3.65 X1000 (1.4-6.5); NEUT% 66.9 % (42.2-75.2); PLT 189 X1000 (130-400); RBC 3.26 XMIL (4.7-6.1); RDW 15.6 % (11.5-14.5); WBC 5.45 X1000 (4.8-10.8)
[2018-11-26 07:02] LABS: AGAP 13; ALBUMIN 2.9 g/dL (3.5-5.0); ALKALINE PHOSPHATASE 62 U/L (32-122); BUN 20 mg/dL (8-22); CALCIUM 9.5 mg/dL (8.8-10.2); CHLORIDE 99 mmol/L (98-107); COSMO 276; CREATININE 1.1 mg/dL (0.7-1.2); ESTIMATED GFR > 60; GLUCOSE 122 mg/dL (70-104); GOT 17 U/L (10-34); GPT 8 U/L (10-44); POTASSIUM 3.6 mmol/L (3.5-5.1); SODIUM 136 mmol/L (136-145); TCO2 24 mmol/L (25-35); TOTAL BILIRUBIN 0.44 mg/dL (0.20-1.00); TOTAL PROTEIN 5.9 g/dL (6.3-8.3)
--- NOTE | 2018-11-26 08:53 | Diag Imaging Result Doc PS360 ---
EXAM: CT THORAX W/CONTRAST INDICATION: left lung mass TECHNIQUE: This exam was performed using automated exposure control, adjustment of mA or kV according to patient size, and/or use of iterative reconstruction technique. COMPARISON: Abdominal CT dated 11/21/2018. No dedicated chest CT is available for comparison. FINDINGS: The enhancing mass at the medial left lung base seen on the previous abdominal CT is again identified. Based on this study, it is unlikely that it represents collapsed gastric mucosa that appears to originate above the diaphragm and is causing inferior bowing of the adjacent diaphragm. It is highly suspicious for neoplasm. It is unclear if it arises from the parenchyma of the left lower lobe or in the pleural space. It measures 5.6 x 4.5 cm axially. There is a very small volume of pleural fluid layering on the left and there is left basilar atelectasis. This atelectasis has worsened since the previous abdominal CT. In part, this atelectasis appears to be due to significant mucous plugging involving the lower lobe bronchi on the left. There is milder subsegmental atelectasis on the right. There is patchy pulmonary fibrosis throughout both lungs. It would be difficult to completely exclude superimposed airspace consolidation given the fairly extensive patchy fibrosis, especially at the lung bases. There are a few small pleural calcifications at the left lung base. There is cardiomegaly. There are calcified left hilar lymph nodes indicating prior granulomatous disease. There is no evidence of significant lymphadenopathy, otherwise. Limited views of the upper abdomen are essentially stable. The bones are osteopenic. There has been prior thoracic spine vertebroplasty. IMPRESSION: 1.Pleural-based mass at the left lung base as described that is suspicious for neoplasm. Please see above discussion. 2.Very small left pleural effusion. 3.Left bronchial mucous plugging with left lower lobe atelectasis. 4.Patchy fibrotic changes throughout both lungs. In the right clinical scenario, superimposed pneumonia would be possible. Note there are no prior chest CTs available for comparison. Electronically signed by Isaak King 11/26/2018 8:50 AM
[2018-11-26] MEDS: ULTRACET 37.5MG/325MG PO SCH (12:27)
[2018-11-26] MEDS: ICAR-C PLUS PO SCH (12:27)
[2018-11-26] MEDS: FLOMAX PO SCH (12:27)
--- NOTE | 2018-11-26 14:16 | DISCHARGE SUMMARY ---
ADMISSION DATE: 11/21/2018 DISCHARGE DATE: 11/26/2018 CONSULTATIONS DURING THIS ADMISSION: 1. Surgery was consulted. Patient was seen by Dr. Dubose. 2. GI was also consulted. Patient was seen by Dr. Godoy. INVASIVE PROCEDURES DONE DURING THIS ADMISSION: EGD was done which was normal. IMAGING STUDIES OF SIGNIFICANCE: 1. A CT scan of the abdomen and pelvis was done which showed left basilar diaphragmatic mass and cholelithiasis. 2. A CT scan of the chest showed pleural based mass at the left lung base suspicious for neoplasm. There is a very small left pleural effusion. There is a left bronchial mucus plug with left lower lobe atelectasis. There were also patchy fibrotic changes throughout both lungs. ADMISSION DIAGNOSES: 1. Abdominal pain. 2. History of cerebrovascular accident. 3. Hypertension. 4. History of prostate cancer. DIAGNOSES AT THE TIME OF DISCHARGE: 1. 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 2. Cholelithiasis. 3. History of cerebrovascular accident. 4. History of pancreatic cancer. Patient is on Casodex. 5. Generalized weakness and deconditioning. Physical Therapy is on board. 6. Hyponatremia, improved. 7. Normocytic anemia. PRESENTING COMPLAINT: Abdominal pain. HISTORY OF PRESENTING COMPLAINT: Mr. Neville is an 88-year-old gentleman with history of CVA, prostate cancer, some heart murmur, who presented initially to [facility] because of abdominal discomfort. The patient was evaluated over there and a CT scan revealed a diaphragmatic mass. Patient was subsequently transferred to [facility] for higher level of care. HOSPITAL COURSE: Mr. Neville was admitted to the medical floor. Was seen on daily basis by the providers. Surgery and GI were consulted. Patient was seen respectively. A decision for EGD was made. This was subsequently done, but were normal findings. A CT scan of the chest was done which showed that there is a pleural-based mass I have spoken myself with Dr. King, the radiologist who reviewed the images, and he is confident that this is more pleural based mass and that there is some pleural calcification as well, and this mass is concerning for mesothelioma. He also said, however, that it would be extremely hard for even CT guidance to reach the mass for any sampling and that he would recommend that we do an outpatient PET scan and probably sample the small pleural effusion to see if that gives us any information before going for sampling. I have discussed the findings extensively with the family (a nephew and a niece who both take care of Mr. Neville), and we did go over the possibility that this mass could be a malignancy; however, that the CT scan of both the abdomen and pelvis did not show any external metastasis, and that if malignancy is confirmed and PET scan is negative, then the most likely thing would be surgery and at his age I am not sure if he will be able to withstand any invasive procedure of that sort. At any case, the family has already decided that they would not pursue this mass and that they will rather follow this up with their primary care doctor and request that a CT scan is repeated in about 6 weeks to follow up on the disease, which I think is also a reasonable approach. I did however notify them that if the mass is getting any bigger or if it metastasizes, the patient will get sicker and even weaker, which they do understand. In terms of the generalized weakness, the patient has been evaluated and he will be going to [facility] for a 21-day course of physical rehabilitation. This morning Mr. Neville was sitting up. He was having his breakfast. He feels strong. He feels well. Denies any more abdominal pain. He is subsequently being discharged in stable conditions to [facility] for physical yazidism. At the time of the discharge there are no new pending labs or imaging studies. TIME SPENT: Discharge time was 35 minutes. cc: MD Reagan Matos MD Dr. Kelso
--- NOTE | 2018-11-26 14:31 | Diag Imaging Result Doc PS360 ---
EXAM: CHEST-PORTABLE HISTORY: rehab placement TECHNIQUE: Chest single view COMPARISON: 09/03/2016 FINDINGS: Poor inspiratory effort. Heart is mildly prominent. There is scarring bilaterally. Increased interstitial markings in the left base compared to the prior study. Small pleural effusions versus pleural thickening. IMPRESSION: Progressive fibrosis in the left base versus a small superimposed infiltrate Electronically signed by Jermaine Tavarez 11/26/2018 2:28 PM
[2018-11-26 16:31] VITALS: BP 135/60
== END 2018-11-26 18:23 | DRG 392 ==
LOC: P.ED 13:44 → SUATTDRO 22:00 → 4N 22:00
PROVIDERS: ATTEND Internal Medicine
CPT/HCPCS: 71010; 71045; 71260; 74177; 80048; 80053; 81001; 82150; 83690; 85025; 93005; 96374; 99284; A9270; J2270; J2405; Q9967

== ENCOUNTER 2019-06-04 13:57 | Inpatient (IN) ==
[2019-06-04 15:42] LABS: CREATININE 1.9 mg/dL (0.7-1.2); HEMATOCRIT 34.6 % (42.0-52.0); HEMOGLOBIN 10.6 g/dL (14.0-18.0); MCH 21.9 PG (27-31); MCHC 30.6 g/dL (33-37); MCV 71.3 FL (81-99); RBC 4.85 XMIL (4.7-6.1); RDW 21.3 % (11.5-14.5); TOTAL BILIRUBIN 0.37 mg/dL (0.20-1.00); TOTAL PROTEIN 8.1 g/dL (6.3-8.3); WBC 9.35 X1000 (4.8-10.8)
[2019-06-04 15:43] LABS: BASO# 0.01 X1000 (0.0-0.2); BASO% 0.1 % (0.0-0.8); EOS# 0.05 X1000 (0.0-0.7); EOS% 0.5 % (0.0-10.0); IMM GRAN# 0.02 X1000 (0.0-0.04); IMM GRAN% 0.2 % (0.0-0.5); LYMPH# 1.64 X1000 (1.2-3.4); LYMPH% 17.5 % (20.5-51.1); MONO% 6.4 % (1.7-9.3); MPV 10.2 FL (7.4-10.4); NEUT# 7.03 X1000 (1.4-6.5); NEUT% 75.3 % (42.2-75.2); PLT 331 X1000 (130-400)
[2019-06-04 15:47] LABS: CALCIUM 12.8 mg/dL (8.8-10.2)
[2019-06-04] MEDS ORDERED: NS 1,000 ML IV ONE (15:54)
--- NOTE | 2019-06-04 16:46 | Diag Imaging Result Doc PS360 ---
EXAM: CHEST-1 VIEW HISTORY: elevated troponin TECHNIQUE: Single view COMPARISON: 11/26/2018 FINDINGS: Poor inspiratory effort. There is scarring or atelectasis in the lower lungs. The tiny pleural effusions. Heart is mildly prominent. Left midlung granuloma. IMPRESSION: Tiny effusions with scarring or atelectasis in the lower lungs. Electronically signed by Jermaine Tavarez 06/04/2019 4:44 PM
[2019-06-04] MEDS ORDERED: LR 1,000 ML IV ONE (17:06)
[2019-06-04] MEDS ORDERED: TYLENOL PO PRN (17:34)
--- NOTE | 2019-06-04 17:46 | PROVIDER DOCUMENTATION ---
This chart was entered by Suzan Sr Scribe, acting as scribe for Trupti Grant MD. HPI-General Adult - General Chief Complaint: General Adult Stated Complaint: failure to thrive/hypercalcemia Time Seen by Provider: 06/04/19 14:21 Source: patient, family Allergies/Adverse Reactions: Patient Allergies Allergy/AdvReac Type Severity Reaction Status Date / Time No Known Allergies Allergy Verified 11/21/18 14:18 Home Medications: Home Medication List Medication Instructions Recorded Confirmed Last Taken Type Aspirin 81 mg PO DAILY 11/21/18 11/21/18 Unknown History Bicalutamide [Casodex] 50 mg PO DAILY 11/21/18 11/21/18 Unknown History Cholecalciferol (Vitamin D3) 1,000 unit PO DAILY 11/21/18 11/21/18 Unknown History [Vitamin D3] Dexamethasone 1.5 mg PO DIRECTED 11/21/18 11/21/18 Unknown History Furosemide [Lasix] 20 mg PO DAILY 11/21/18 11/21/18 Unknown History Iron Carbonyl/Vit C/Vit B12/FA 1 each PO DAILY 11/21/18 11/21/18 Unknown History [Icar-C Plus] Pantoprazole [Protonix] 40 mg PO DAILY@0700 11/21/18 11/21/18 Unknown History Potassium Chloride 10 meq PO DAILY 11/21/18 11/21/18 Unknown History SIMVAstatin [Zocor] 40 mg PO QHS 11/21/18 11/21/18 Unknown History Tamsulosin [Flomax] 0.4 mg PO DAILY 11/21/18 11/21/18 Unknown History Tramadol/APAP [Ultracet 1 each PO BID 11/21/18 11/21/18 Unknown History 37.5MG/325Mg] - History of Present Illness -Gen Adult Nature of Presenting Problems: 89 yobm presents to the ed via ems (first response) with c/o FTT weakness, loss of appetite, cough and for last 2 months pt has been unable to ambulate. pt on exam is frail in appearance but does not appear to be in distress pt niece is at bedside which is POA Location of Pain/Injury: reports: generalized (weakness) Quality of Pain: reports: other (weakness) Severity: reports: moderate Onset/Duration: reports: gradual Timing: reports: getting worse Context/Activities at Onset: reports: light activity Modifying Factors: improves with: nothing Associated Symptoms: reports: fatigue, loss of appetite, malaise, weakness, trouble walking. denies: back/neck pain, chest pain, fever/chills, nausea, vomiting Similar Symptoms Previously?: Yes Recently seen or treated by another doctor?: Yes Review of Systems - Adult - REVIEW OF SYSTEMS - ADULT Constitutional: reports: see HPI, fatique Eyes: reports: no symptoms reported Ears, Nose, Mouth & Throat: reports: no symptoms reported Cardiovascular: reports: see HPI, edema. denies: chest pain, palpitations, sy ncope Respiratory: reports: see HPI, cough. denies: shortness of breath, wheezing Gastrointestinal: reports: see HPI, poor appetite. denies: abdominal pain, diarrhea, nausea, vomiting Genitourinary: reports: no symptoms reported Musculoskeletal: reports: see HPI, muscle weakness. denies: back pain, neck pain Integumentary: reports: no symptoms reported Neurological: denies: dizziness/vertigo, headache/migraines, syncope, tremors Psychiatric: reports: no symptoms reported Endocrine: reports: no symptoms reported Hematologic/Lymphatic: reports: no symptoms reported Allergic/Immunologic: reports: no symptoms reported All Other Systems: Reviewed and Negative Past History - Adult - PAST MEDICAL HISTORY-ADULT Review of Records: reports: Old Records Reviewed, Nursing Assessment Review, Med ications Reviewed, Social history reviewed & non-contributory. Major Childhood Illnesses: reports: denies history Cardiovascular: reports: HTN, murmur Respiratory: reports: denies history Gastrointestinal: reports: GERD Genitourinary: reports: prostate cancer Musculoskeletal: reports: chronic pain, neck/back injury Neurological: reports: CVA, stroke deficits, speech difficulty Psychiatric: reports: denies history Endocrine/Immune: reports: denies history Other Conditions: reports: denies history - PRIOR SURGERIES/PROCEDURES Surgical/Procedure History: reports: other (TURP) - IMMUNIZATION STATUS Childhood Immunizations: See Nurse Assessment Flu Vaccine: See Nurse Assessment - FAMILY HISTORY Family History: reviewed, not pertinent - SOCIAL HISTORY Smoking: quit greater than 1 year Substance Use: denies Alcohol Use Frequency: never Living Situation: care facility Physical Exam-General - PHYSICAL EXAM-ADULT Initial Vital Signs Reviewed: Yes - CONSTITUTIONAL General Appearance: alert, mild distress, cachetic, thin - EYES Eyes: PERRL/EOMI, pale conjunctivae - HEAD, EARS, NOSE, MOUTH & THROAT HENMT: other (no teeth). negative: moist mucous membranes (dry) - NECK Neck: non-tender, normal inspection - RESPIRATORY Respiratory: chest non-tender, decreased breath sounds. negative: crackles, rales, wheezing - CARDIOVASCULAR Cardiovascular: normal peripheral pulses, systolic murmur - GASTROINTESTINAL (ABDOMEN) Abdominal Exam: normal bowel sounds, non tender, soft - GENITOURINARY Male Genitalia: deferred Rectal Exam: deferred Hemoccult Exam: deferred - LYMPHATIC Lymphatic: no adenopathy - MUSCULOSKELETAL Back Exam: no CVA tenderness, no vertebral tenderness Extremity: pelvis stable, swelling (BLE edema mild pitting), other (BLE cool to touch) - SKIN Integumentary: normal color, normal turgor, warm/dry - NEUROLOGIC Neurologic: grossly normal - PSYCHIATRIC Psych/Mental Status: normal mood/affect, normal thought content, normal thought process Progress - PLAN OF CARE/RESULTS Progress/Plan/Lab Results: Vital Signs - 8 hr 06/04/19 14:10 Temperature 97.5 F L Pulse Rate 73 Respiratory Rate 16 Blood Pressure 135/66 O2 Sat by Pulse Oximetry 100 Result Diagrams: 06/04/19 15:00 06/04/19 15:00 - REASSESSMENT Reassessment #1 Time Reassessed: 16:10 Status: unchanged - EKG 1 Time of EKG reading by physician:: 16:03 EKG Read and Signed by:: Trupti Grant EKG Interpretation (*Must complete 3 of following elements*): Normal Rate: 56 Rhythm: sinus bradycardia [place]: normal QRS: normal [place] Interval: normal ST Wave: normal - CONSULTS/PCP/HOSPITALIST Notification #1 *Consult/PCP/Hospitalist*: hospitalist dr herman Time Discussed: 17:02 Consult Disposition: Admit Departure - Departure Date of Disposition Decision: 06/04/19 Time of Disposition Decision: 17:02 DIAGNOSIS: FTT (failure to thrive) in adult, Hypercalcemia Disposition: ADMITTED INPATIENT 09 Certified Medical Emergency: Emergent Condition: Stable Referrals and Follow-Ups: Armando Gabriel MD [Primary Care Provider] - - Critical Care Note This patient required my direct & personal management of CC.: No Attestation - Physician/ NORMAN Attestation Patient care was provided by Advanced Practice Provider:: No The physician spent face to face time with patient:: Yes Advanced Practice Provider documentation review:: Supervising physician onsite and consulted in the evaluation and care of this patient. The physician did have a face to face encounter with the patient. This chart was documented by the indicated scribe, (Suzan Sr Scribe) and accurately reflects the services I performed and decisions made by me, Trupti Grant MD, as attested by the provider's signature.
[2019-06-04] MEDS ORDERED: ASPIRIN PO STA (17:57)
--- NOTE | 2019-06-04 18:52 | HISTORY AND PHYSICAL ---
CHIEF COMPLAINT: Failure to thrive, weakness and low appetite since 2 months. HISTORY OF PRESENT ILLNESS: Mr. Neville is an 89-year-old man, [facility] resident with past medical history of prostate cancer, the details of which are currently pending; newly found left lung mass in 11/2018, which was not pursued considering his poor functional status; CVA; essential hypertension. He was admitted for weakness in 11/2018. He comes in with chief complaints of failure to thrive, poor appetite and feeling lethargic since about 2 months duration, which has been progressively getting worse. In the emergency room he was found to have hypercalcemia of more than 12, so the hospitalist team was consulted for further management. At the time of my evaluation, the patient says his entire body hurts. He denies any new complaints. He says that he occasionally coughs but it is dry. He denies any shortness of breath. He is not able to contribute to the history meaningfully. Most of the history is obtained by family at the bedside. They do not mention any burning urination or increased frequency. REVIEW OF SYSTEMS: Positive for body ache. Positive for poor appetite. PAST MEDICAL HISTORY: CVA, hypertension, prostate cancer, left lung mass, BPH. PAST SURGICAL HISTORY: TURP. ALLERGIES: No known allergies. MEDICATIONS: Reconciliation is pending. On last discharge summary he was taking aspirin 81 mg daily; Casodex 1 tablet daily; iron one tablet 325 mg daily; pantoprazole 40 mg daily; tamsulosin 0.4 mg daily; simvastatin 20 mg at nighttime. SOCIAL HISTORY: He is a former smoker, no longer active smoker. No history of alcohol or illicit drug abuse. FAMILY HISTORY: No history of coronary artery disease and currently not significant. PHYSICAL EXAMINATION: VITAL SIGNS: Temperature 97.5 degrees, pulse 64, respiratory rate 16, blood pressure 140/70, saturating 97% on room air. GENERAL: He does not appear in any acute distress. His oral cavity is dry. LUNGS: Air entry bilaterally equal. No wheeze, rhonchi, crackles. CARDIOVASCULAR: S1, S2 normal. Systolic crescendo-decrescendo murmur, best heard at second intercostal space on the right. No rub or gallop. ABDOMEN: Soft, nontender. Active bowel sounds. EXTREMITIES: Mild lower extremity edema. SKIN: He has generalized decreased skin turgor. NEUROLOGIC: He has a right-sided facial droop. He also has some speech dysarthria, which is his baseline. He is able to raise both upper extremities above ground level. He is able to barely lift both lower extremities because of weakness. LABORATORY DATA: Labs suggestive of microcytic anemia, normal platelet count. Acute kidney injury, hypercalcemia, elevated troponin without any known history of coronary artery disease. DIAGNOSTIC DATA: EKG scanning is pending. ASSESSMENT: 1. Failure to thrive, likely due to poor oral intake because of age and general debility. 2. Hypercalcemia. Differential includes clinical volume depletion versus metastatic prostate cancer. 3. Prostate cancer, on Casodex. 4. Left lung mass, the workup of which was not pursued in 11/2018 because of his general debility. 5. Acute kidney injury. PLAN: Start the patient on intravenous fluid resuscitation. I will follow up with parathyroid hormone. I will also consider getting a CT scan of his spine if his hypercalcemia does not resolve after intravenous fluid resuscitation. I will rule out urinary infection, and I will admit him on the medical floor. Plan of care discussed with the patient. All of his questions have been answered. The patient's family is at bedside as well. cc: Clint Villalobos MD
[2019-06-04 19:11] LABS: URINE SOURCE CLEAN CATCH
[2019-06-04 19:16] LABS: BILIRUBIN URINE NEGATIVE (NEGATIVE); BLOOD URINE NEGATIVE (NEGATIVE); COLOR YELLOW; GLUCOSE URINE NEGATIVE (NEGATIVE); KETONE URINE NEGATIVE (NEGATIVE); LEUKOCYTES URINE NEGATIVE (NEGATIVE); NITRITE URINE NEGATIVE (NEGATIVE); PH URINE 5.5; PROTEIN URINE TRACE mg/dL (NEGATIVE); SP GRAVITY URINE 1.015; TURBIDITY URINE CLEAR (CLEAR); UROBILINOGEN URINE NORMAL (NORMAL)
[2019-06-04 19:17] LABS: UR EPITHELIAL CELLS <10 /HPF (<10); URINE BACTERIA NEGATIVE /HPF; URINE RBC <10 /HPF (<10); URINE WBC <10 /HPF (<10)
--- NOTE | 2019-06-04 23:23 | EKG Report ---
Test Performed on : 06/04/2019 4:03:39 PM Test Reason : weakness Blood Pressure : / mmHG Vent. Rate : 056 BPM Atrial Rate : 056 BPM P-R Int : 154 ms QRS Dur : 090 ms QT Int : 404 ms P-R-T Axes : 026 000 008 degrees QTc Int : 389 ms Sinus bradycardia. Otherwise normal ECG No previous ECGs available Unconfirmed Result
[2019-06-04] MEDS: ZOCOR PO SCH (23:30)
[2019-06-05] MEDS: LOVENOX SUBQ SCH (06:13)
[2019-06-05] MEDS: PROTONIX PO SCH (06:14)
[2019-06-05 07:26] LABS: INR 1.1; PROTIME 14.3 Seconds (11.0-16.0)
[2019-06-05 07:28] LABS: PTT 36.9 Seconds (22.3-41.8)
[2019-06-05 07:38] LABS: BASO# 0.02 X1000 (0.0-0.2); BASO% 0.2 % (0.0-0.8); EOS# 0.19 X1000 (0.0-0.7); HEMATOCRIT 27.6 % (42.0-52.0); HEMOGLOBIN 8.2 g/dL (14.0-18.0); LYMPH# 1.79 X1000 (1.2-3.4); LYMPH% 18.6 % (20.5-51.1); MCH 21.4 PG (27-31); MCHC 29.7 g/dL (33-37); MCV 72.1 FL (81-99); MONO# 0.65 X1000 (0.11-0.59); MONO% 6.8 % (1.7-9.3); MPV 9.9 FL (7.4-10.4); NEUT# 6.97 X1000 (1.4-6.5); NEUT% 72.4 % (42.2-75.2); PLT 266 X1000 (130-400); RBC 3.83 XMIL (4.7-6.1); RDW 20.6 % (11.5-14.5); WBC 9.62 X1000 (4.8-10.8)
[2019-06-05 08:03] LABS: ALB/GLOB RATIO 0.8; ALBUMIN 2.8 g/dL (3.5-5.0); CALCIUM 11.2 mg/dL (8.8-10.2); CREATININE 1.5 mg/dL (0.7-1.2); POTASSIUM 3.6 mmol/L (3.5-5.1); TOTAL BILIRUBIN 0.37 mg/dL (0.20-1.00); TOTAL PROTEIN 6.5 g/dL (6.3-8.3)
[2019-06-05] MEDS: ASPIRIN PO SCH (09:50)
[2019-06-05] MEDS: FLOMAX PO SCH (09:50)
[2019-06-05] MEDS: CASODEX PO SCH (09:50)
[2019-06-05] MEDS: ICAR-C PLUS PO SCH (09:50)
[2019-06-05] MEDS ORDERED: LR 1,000 ML IV ONE (14:03)
--- NOTE | 2019-06-05 15:39 | PROGRESS NOTE ---
DATE: 06/05/2019 INTERVAL HISTORY: No acute events overnight. SUBJECTIVE: He states he is feeling cold and he wants more blankets. He denies any other problems. He states he was able to eat okay, however, it is not documented appropriately. VITALS: Temperature 97.6, pulse 73, respiratory rate 20, blood pressure 120/59, saturating 100% room air. PHYSICAL EXAMINATION: General: Cachetic, not in acute distress. HEENT: Oral cavity is moist. Lungs: Air entry bilaterally equal. No wheeze, rhonchi, or crackles. Heart: S1, S2 normal. Systolic crescendo-decrescendo murmur best heard at second best heard at second intercostal space on the right. No rub or gallop. Abdomen: Soft, nontender, active bowel sounds. Extremities: No lower extremity edema. He has decreased generalized skin turgor. Neurologic: He is alert. He does have right-sided facial droop and dysarthria, which is baseline post CVA. LABORATORY: Suggestive of decrease in hemoglobin likely because of hemodilution. Normal coagulation. Improving in BUN and creatinine. Improving in hypercalcemia. Urinalysis did not have any evidence of infection. Chest x-ray was unremarkable for any acute cardiopulmonary process except tiny effusions with scarring or atelectasis in the lower lungs. ASSESSMENT AND PLAN: 1. Failure to thrive due to poor oral intake because of age and general debility and intravascular volume depletion. Continue intravenous lactated Ringer's, continue mechanical soft diet and follow up with BMP. Continue physical therapy. 2. Hypercalcemia and acute kidney injury likely due to intravascular volume depletion. Vitamin D level was adequate. Phosphatase normal. Follow up parathyroid hormone-related peptid level. In the future, I may consider CT scan of his spine if his calcium level does not normalize after intravenous fluids. Currently improving. 3. History of benign prostatic hypertrophy and prostate cancer. Continue home bicalutamide and tamsulosin. 4. History of iron-deficiency anemia. Continue iron carbonyl, multivitamin tablet. His current lower hemoglobin is still because of hemodilution. 5. Disposition. The patient is hemodynamically stable. Will continue to intravascularly hydrate him over the weekend and I am anticipating discharge early next week. Plan of care discussed with him. I will keep the family updated. cc: Clint Villalobos MD
[2019-06-05] MEDS: KLOR-CON PO SCH ×2 (17:41→20:38)
[2019-06-05] MEDS: ZOCOR PO SCH (20:37)
[2019-06-06] MEDS: LOVENOX SUBQ SCH (06:30)
[2019-06-06] MEDS: PROTONIX PO SCH (06:30)
[2019-06-06 07:07] LABS: BASO# 0.02 X1000 (0.0-0.2); BASO% 0.2 % (0.0-0.8); EOS# 0.07 X1000 (0.0-0.7); EOS% 0.6 % (0.0-10.0); HEMATOCRIT 28.6 % (42.0-52.0); HEMOGLOBIN 8.5 g/dL (14.0-18.0); IMM GRAN# 0.02 X1000 (0.0-0.04); IMM GRAN% 0.2 % (0.0-0.5); LYMPH# 2.13 X1000 (1.2-3.4); LYMPH% 18.2 % (20.5-51.1); MCH 21.3 PG (27-31); MCHC 29.7 g/dL (33-37); MCV 71.5 FL (81-99); MONO% 6.8 % (1.7-9.3); MPV 9.9 FL (7.4-10.4); NEUT# 8.66 X1000 (1.4-6.5); PLT 302 X1000 (130-400); RDW 21.2 % (11.5-14.5)
[2019-06-06 07:35] LABS: SODIUM 139 mmol/L (136-145)
[2019-06-06 07:36] LABS: AGAP 8; BUN 18 mg/dL (8-22); CALCIUM 10.6 mg/dL (8.8-10.2); CHLORIDE 107 mmol/L (98-107); COSMO 279; CREATININE 1.3 mg/dL (0.7-1.2); ESTIMATED GFR > 60; GLUCOSE 96 mg/dL (70-104); MAGNESIUM 1.9 mg/dL (1.5-2.7); POTASSIUM 4.3 mmol/L (3.5-5.1); TCO2 24 mmol/L (25-35)
[2019-06-06] MEDS: CASODEX PO SCH (10:00)
[2019-06-06] MEDS: FLOMAX PO SCH (10:00)
[2019-06-06] MEDS: ASPIRIN PO SCH (10:00)
[2019-06-06] MEDS: ICAR-C PLUS PO SCH (10:01)
[2019-06-06] MEDS ORDERED: LR 1,000 ML IV SCH (10:45)
--- NOTE | 2019-06-06 12:26 | PROGRESS NOTE ---
DATE: 06/06/2019 INTERVAL HISTORY: No acute events overnight. His intake meal intake has not been charted appropriately, which I have requested. The patient appears to be doing okay. Denies any complaints. VITALS: Temperature 98.2 degrees, pulse 84, respiratory rate 20, blood pressure 130/60. He is saturating 100% on room air. PHYSICAL EXAMINATION: Cachectic. Not in any acute distress. Oral cavity is moist.Lungs: Air entry bilaterally equal. No wheeze, rhonchi, crackles. Cardiovascular: S1, S2 normal. Systolic crescendo-decrescendo murmur best heard at second intercostal space on the right. No rub or gallop. Abdomen: Soft, nontender, active bowel sound. Extremities: No lower extremity edema. Neurologic: He is alert. He does have right-sided facial droop and dysarthria, which is above baseline post CVA. He is able to raise both of his forearms above ground level, but he is not able to perform overhead abduction. He is also barely able to lift bilateral lower extremities above ground level. He had a soft bowel movement today. LABS: Suggestive of microcytic anemia, normal platelet count, normal electrolytes, improving acute kidney injury and improving hypercalcemia. Microbiology: Stool occult blood test was sent which was negative. ASSESSMENT AND PLAN: 1. Failure to thrive due to poor oral intake because of age and general debility and intravascular volume depletion. Continue intravenous lactated Ringer's, mechanical soft diet and follow up BMP. Continue physical therapy evaluation which is pending. 2. Hypercalcemia and acute kidney injury due to intravascular volume depletion resolving. His vitamin D phosphate levels were normal. Parathyroid hormone related peptide levels are pending. 3. Continue home bicalutamide and tamsulosin for history of BPH and prostate cancer; iron carbonyl multivitamin tablet for history of iron deficiency anemia. 4. Disposition. The patient appears to be doing okay. I would continue to encourage him to eat by mouth. Physical therapy evaluation is also pending. Plan of care discussed with the patient. Yesterday I had discussion with the patient's granddaughter and had answered all of her questions. cc: Clint Villalobos MD
[2019-06-06] MEDS: ZOCOR PO SCH (22:08)
[2019-06-07] MEDS: LOVENOX SUBQ SCH (06:04)
[2019-06-07] MEDS: PROTONIX PO SCH (06:04)
[2019-06-07] MEDS: ICAR-C PLUS PO SCH (09:47)
[2019-06-07] MEDS: ASPIRIN PO SCH (09:47)
[2019-06-07] MEDS: FLOMAX PO SCH (09:48)
[2019-06-07] MEDS: CASODEX PO SCH (09:48)
--- NOTE | 2019-06-07 13:51 | PROGRESS NOTE ---
DATE: 06/07/2019 SUBJECTIVE: No acute events overnight. He probably ate only 25% of his meals yesterday. He keeps on remaining inside the bed and has not come out of bed yet. He is sleeping at the time of my encounter. He wakes up to verbal stimuli. Denies any complaints. VITALS: Temperature 97.6 degrees, pulse 73, respiratory 20, blood pressure 120/53, saturating 98% on room air. PHYSICAL EXAMINATION: General: He does not appear in any acute distress. HEENT: Oral cavity is dry. Lungs: Air entry bilaterally equal. No wheeze or rhonchi or crackles. Cardiovascular: S1, S2 normal. Systolic crescendo-decrescendo murmur best heard at second intercostal space. No rub or gallop. Abdomen: Soft, nontender. Active bowel sounds. Extremity: No lower extremity edema. Neurologic: He is alert. He does have right-sided facial droop and dysarthria. He is able to raise both of his forearms above ground level, but he is not able to perform overhead abduction because of weakness. He is barely able to lift bilateral lower extremity above ground level. He is weak, able to wiggle both of his feet. DIAGNOSTIC DATA: No BMP. BMP is pending. ASSESSMENT AND PLAN: 1. Failure to thrive due to poor oral intake because of age and general debility and intravascular volume depletion. I will give additional intravenous fluids based on BMP. Continue mechanical soft diet and follow up BMP. Physical Therapy evaluation yesterday evening, but the patient refused. 2. Hypercalcemia and acute kidney injury due to intravascular volume depletion, now improving. Follow up BMP. Parathyroid hormone related peptide is in lab. 3. Others. Continue bicalutamide and tamsulosin for history of BPH and prostate cancer; iron carbonyl multivitamin tablet for history of iron deficiency anemia 4. Disposition. The patient does have failure to thrive, and his volume depletion is likely to recur again because of his poor p.o. intake. I explained this to patient's nephew on the phone. I will anticipate discharge in next 1 or 2 days. Plan of care discussed with him on the phone. Palliative care consult has been placed. cc: Clint Villalobos MD [facility]
[2019-06-07 14:40] LABS: CREATININE 1.5 mg/dL (0.7-1.2)
[2019-06-07] MEDS: NS 1,000 ML IV SCH (19:57)
[2019-06-07] MEDS: ZOCOR PO SCH (20:47)
[2019-06-08] MEDS: PROTONIX PO SCH (06:08)
[2019-06-08] MEDS: LOVENOX SUBQ SCH (06:09)
[2019-06-08 06:51] LABS: BASO# 0.02 X1000 (0.0-0.2); BASO% 0.2 % (0.0-0.8); EOS# 0.16 X1000 (0.0-0.7); EOS% 1.8 % (0.0-10.0); HEMOGLOBIN 7.2 g/dL (14.0-18.0); LYMPH# 1.99 X1000 (1.2-3.4); LYMPH% 22.8 % (20.5-51.1); MCH 21.4 PG (27-31); MCV 71.2 FL (81-99); MONO# 0.63 X1000 (0.11-0.59); MONO% 7.2 % (1.7-9.3); MPV 10.1 FL (7.4-10.4); NEUT# 5.91 X1000 (1.4-6.5); PLT 257 X1000 (130-400); RBC 3.37 XMIL (4.7-6.1); RDW 20.6 % (11.5-14.5); WBC 8.71 X1000 (4.8-10.8)
[2019-06-08 07:10] LABS: CALCIUM 10.6 mg/dL (8.8-10.2); CREATININE 1.5 mg/dL (0.7-1.2); MAGNESIUM 1.9 mg/dL (1.5-2.7); POTASSIUM 3.7 mmol/L (3.5-5.1)
[2019-06-08] MEDS: NS 1,000 ML IV SCH (09:47)
[2019-06-08] MEDS: ICAR-C PLUS PO SCH (09:47)
[2019-06-08] MEDS: FLOMAX PO SCH (09:47)
[2019-06-08] MEDS: ASPIRIN PO SCH (09:47)
[2019-06-08] MEDS: CASODEX PO SCH (09:47)
[2019-06-08 11:49] VITALS: BP 119/54
--- NOTE | 2019-06-08 13:41 | DISCHARGE SUMMARY ---
ADMISSION DATE: 06/04/2019 DISCHARGE DATE: 06/08/2019 DISCHARGE DISPOSITION: [facility] and hospice to see him there. DISCHARGE CONDITION: Hemodynamically stable. He is alert and oriented. His oral intake is still poor and so the hospice team has been consulted. CONSULTATION DURING HOSPITALIZATION: Palliative Care. DISCHARGE DIAGNOSES: 1. Failure to thrive. 2. Clinical intravascular volume depletion. 3. Hypercalcemia. 4. Acute kidney injury. 5. Microcytic chronic anemia. OTHER DIAGNOSES: 1. History of prostate cancer, on bicalutamide. 2. History of left lung mass about 5 cm in diameter, diagnosed in November 2018 for which family had opted conservative management. 3. History of benign prostatic hypertrophy. 4. Essential hypertension. 5. History of cerebrovascular accident. DISCHARGE MEDICATIONS: 1. Mirtazapine 7.5 mg 2 tablets at nighttime. 2. Simvastatin 40 mg at nighttime. 3. Aspirin 81 mg daily. 4. Bicalutamide 50 mg daily. 5. Tamsulosin 0.4 mg daily. 6. Icar C Plus 1 tablet daily. 7. MiraLAX 17 g every 24 hours as needed for constipation. 1. Pantoprazole 40 mg daily. 2. Sertraline 25 mg daily. 3. Acetaminophen 650 mg every 4 hours as needed for pain. 4. Tramadol 37.5/APAP 325 mg 1 tablet p.o. b.i.d. as needed for pain not controlled on simple acetaminophen. LABORATORY DATA: At the time of discharge, hemoglobin 7.2, platelet 257,000, mean corpuscular volume 71, potassium 3.7, BUN 17, creatinine 1.5, calcium 10.6. Stool occult blood test on admission was negative. Vitamin D level was 39.5, blood sugar was 146. Urinalysis did not have any pyuria. SIGNIFICANT IMAGING DURING HOSPITALIZATION: Chest x-ray had poor inspiratory effort. There was scarring and atelectasis in the lower lungs, tiny pleural effusions, mildly prominent heart, left midlung granuloma. HOSPITAL COURSE SUMMARY: Mr. Neville is an 89-year-old man with past medical history of prostate cancer on Casodex, who was admitted in November 2018 for abdominal pain and was found to have left pleural base lung mass suspicious for neoplasm. At that time, considering his generalized weakness, deconditioning and overall health, the family had decided to not pursue workup and he was discharged to longterm. He came in with chief complaints of failure to thrive about 2 to 4 weeks duration where his poor oral intake was very weak, and he was not able to get up from the bed. Blood test performed in the longterm had found to have abnormal labs and he was sent to the emergency room where he was found to have acute kidney injury and hypercalcemia with a calcium of 12.6, so the hospitalist team was consulted for further management. It was thought that his hypercalcemia and acute kidney injury were related to intravascular volume depletion due to poor oral intake and failure to thrive. He was started on intravenous fluids and soft diet following which his labs improved. The patient's oral intake still remained low. It was thought that his poor oral intake could be related to his age and debility or worsening left lung mass which was not pursued further considering family's previous wishes. At the time of discharge, Palliative Care was consulted and they had a discussion with the patient's family and apparently the patient is going to [facility] and hospice team would evaluate him in the longterm. I also called the patient's nephew yesterday who was one of the primary decision makers and had informed him that his weakness and his poor intake was likely because of his age and not taking by mouth. TIME SPENT: More than 30 minutes were spent discharging this patient. All of his questions were answered. cc: Clint Villalobos MD
== END 2019-06-08 15:04 | disposition hospice, home (50) | DRG 641 ==
LOC: SUPCPDRO → ED 13:57 → EDIPHOLD 19:10 → 3N 20:48
PROVIDERS: ADMIT Internal Medicine; ATTEND Internal Medicine